=== PATIENT | male | born 1950 | race Asian ===

== ENCOUNTER 2017-11-05 23:16 | Emergency (ER) | payer BC, MEDICARE ==
[2017-11-06] MEDS: IBUPROFEN 600 MG TAB PO (02:14)
[2017-11-06] MEDS: HYDROCODONE/APAP (5/325) TAB PO (02:15)
[2017-11-06] MEDS: LIDOCAINE 1% (MDV) 20 ML INJ SC (04:29)
== END 2017-11-06 06:02 | disposition home or self-care (01) ==
LOC: FTE 23:16
DX: R05 Cough (principal)
CPT/HCPCS: 73130; 73130-LT; 73562-50; 99283-25